=== PATIENT | female | born 2000 | race Two or more races ===

== ENCOUNTER 2019-01-30 17:00 | Emergency (ER) | payer OTHER ==
[~2019-01-30] VITALS: Ht 160 cm; Wt 74.5 kg
[2019-01-30 18:34] VITALS: BP 129/82
[2019-01-30] MEDS ORDERED: IBUPROFEN 400 MG TABLET PO ONE (18:45)
== END 2019-01-30 20:30 | disposition left against medical advice (07) ==
LOC: EMS 17:02
DX: M25.511 Pain in right shoulder (principal); V49.9XXA Car occupant (driver) (passenger) injured in unspecified traffic accident, initial encounter; Y93.89 Activity, other specified; Y92.89 Other specified places as the place of occurrence of the external cause; Y99.8 Other external cause status